=== PATIENT | female | born 1945 | race Caucasian/White ===

== ENCOUNTER → 2017-01-12 | Outpatient (CLI) | payer OTHER | LOC: FIMAGING 15:32 | DX: Z12.31 Encounter for screening mammogram for malignant neoplasm of breast (principal) | CPT/HCPCS: G0202 ==

== ENCOUNTER → 2017-09-01 | Outpatient (CLI) | payer OTHER | LOC: FLAB 14:00 | DX: M48.54XA Collapsed vertebra, not elsewhere classified, thoracic region, initial encounter for fracture (principal) ==

== ENCOUNTER → 2018-02-10 | Outpatient (CLI) | payer OTHER | LOC: BMCIMAGING 12:02 | PROVIDERS: ATTEND Family Medicine | DX: K59.00 Constipation, unspecified (principal) ==

== ENCOUNTER → 2018-02-16 | Outpatient (CLI) | payer OTHER | LOC: FIMAGING 09:58 | PROVIDERS: ATTEND Internal Medicine | DX: Z12.31 Encounter for screening mammogram for malignant neoplasm of breast (principal); Z80.3 Family history of malignant neoplasm of breast ==

== ENCOUNTER → 2018-02-24 | Outpatient (CLI) | payer OTHER | LOC: FIMAGING 12:01 | PROVIDERS: ATTEND Internal Medicine | DX: R92.8 Other abnormal and inconclusive findings on diagnostic imaging of breast (principal) ==

== ENCOUNTER 2019-03-20 10:33 | Outpatient (CLI) | payer OTHER | END 2019-05-03 | LOC: FIMAGING 10:33 ==